=== PATIENT | female | born 1965 | race Caucasian/White ===

== ENCOUNTER 2019-09-06 07:34 | Day surgery (SDC) | payer OTHER, SELFPAY ==
[2019-09-06 07:53] VITALS: BP 131/78; PULSE 63; RESP 16; TEMP 36.6; O2SAT 96; BMI 38.3
[2019-09-06] MEDS: Lactated Ringers 1,000 ML 100 ML IV (08:02)
--- NOTE | 2019-09-06 09:21 | DCINST_ITS ---
Discharge Diet: No Restrictions Discharge Activity: May not drive while taking narcotic pain medications. Call your doctor if you observe: Fever of 101 or Higher, Inability to urinate, Inability to have a bowel movement, Calf discomfort, Uncontrolled pain Allergies/Adverse Reactions: Allergies No Known Allergies Allergy (Verified 09/06/19 07:43) Medications to take at Discharge Ascorbic Acid [Vitamin C] 500 mg PO DAILY 08/30/19 Biotin 2,500 mcg PO DAILY 08/30/19 Bupropion HCl [Wellbutrin Xl] 300 mg PO DAILY 08/30/19 Calcium (Elemental) [Os-Christiano 500] 500 mg PO DAILY@0800 08/30/19 Cephalexin [Keflex] 250 mg PO QHS 08/30/19 Cholecalciferol (Vitamin D3) [Vitamin D3] 2,000 unit PO DAILY 08/30/19 Cranberry Fruit Extract [Cranberry] 500 mg PO DAILY 08/30/19 Estradiol [Estrace Vaginal Cream] 1 dose VAGINAL SUTH 08/30/19 Lisinopril [Zestril] 20 mg PO DAILY 08/30/19 Multivitamin with Minerals [Multiple Vitamin] 1 ea PO DAILY 08/30/19 Triamterene/Hydrochlorothiazid [Triamterene-Hctz 75-50 mg Tab] 1 ea PO DAILY 08/30/19 Primary Care Physician: Meek Soto MD [Primary Care Provider] - Test Results: Test results from this visit will be discussed in further detail at your follow- up appointment, if applicable. Please Follow Up With: Arleen Garcia MD When: call office to be seen next week Proposed Discharge Date: 09/06/19
[2019-09-06] MEDS: Cefazolin 2 GM in 0.9% Normal Saline 100 ML IV (09:23)
[2019-09-06 09:40] VITALS: BP 112/81; BP 131/78; PULSE 73; RESP 16; TEMP 36.7; O2SAT 93
[2019-09-06 09:45] VITALS: BP 117/78; BP 131/78; PULSE 71; RESP 16; O2SAT 92
--- NOTE | 2019-09-06 09:47 | OP.PCM_ITS ---
Problem List (1) Recurrent urinary tract infection Status: Acute Report of Operation Date of Procedure: 09/06/19 Pre-Operative Diagnosis: recurrent urinary tract infections Post-Operative Diagnosis: Same, vaginal atrophy Surgery/Procedure Performed:: Cystoscopy, pelvic exam under anesthesia Type of Anesthesia:: MAC Description of Procedure: The patient is a 54-year-old female with recurrent urinary tract infections who presents for cystoscopic evaluation. Risks benefits and alternatives were discussed and informed consent was obtained. She was taken to the operating room and placed on the operating room table. Anesthesia monitored the head, neck, airway, IV access and vital signs throughout the case. Once anesthesia was appropriately administered the patient was placed into dorsal lithotomy position and was prepped and draped in usual sterile fashion. A cystourethroscopy revealed no abnormality of the urethra. The ureteral orifices were located in the correct area of the trigone. There were bilateral clear ureteral jets observed. The bladder mucosa in its entirety was visualized. There were no areas of erythema, mass, foreign body or ulc eration. There was no trabeculation. The patient's bladder was then emptied. On pelvic examination, there is moderate vaginal atrophy, there is no significant prolapse identified. There was no pelvic mass palpable. The case was terminated. The patient was awakened and taken to the recovery room in good condition. There were no complications during this procedure. Grafts/Implants Used: None - Complications None - Admit VTE Documentation VTE Present on Admission: Yes VTE Mechan Device Prophylaxis: SCD's VTE Pharm Prophylaxis ordered?: No Reason prophylaxis not ordered:: Treatment Not Indicated
[2019-09-06 09:50] VITALS: BP 120/71; BP 131/78; PULSE 57; RESP 16; O2SAT 94
[2019-09-06 09:55] VITALS: BP 121/83; BP 131/78; PULSE 61; RESP 16; TEMP 36.9; O2SAT 95
[2019-09-06 11:06] VITALS: BP 131/78; BP 146/99; PULSE 62; RESP 16; TEMP 36.8; O2SAT 95
== END 2019-09-06 11:09 | disposition home or self-care (01) ==
LOC: SDC 07:35 → AC 07:37
PROVIDERS: PCP Family Medicine; Referring Provider Urology; Visit Provider Urology
PROC: 0TJB8ZZ Inspection of Bladder, Via Natural or Artificial Opening Endoscopic (ICD-10-PCS; CPT 57410; principal; 2019-09-06 08:40)
DX: N39.0 Urinary tract infection, site not specified (principal); N95.2 Postmenopausal atrophic vaginitis; Z87.440 Personal history of urinary (tract) infections; E66.9 Obesity, unspecified; Z68.37 Body mass index [BMI] 37.0-37.9, adult; I12.9 Hypertensive chronic kidney disease with stage 1 through stage 4 chronic kidney disease, or unspecified chronic kidney disease; N18.2 Chronic kidney disease, stage 2 (mild); M19.90 Unspecified osteoarthritis, unspecified site; F41.9 Anxiety disorder, unspecified; F32.9 Major depressive disorder, single episode, unspecified; G47.30 Sleep apnea, unspecified; Z78.0 Asymptomatic menopausal state; Z87.19 Personal history of other diseases of the digestive system; Z79.899 Other long term (current) drug therapy
CPT/HCPCS: 52000; 57410; J7120